=== PATIENT | female | born 1975 | race Caucasian/White ===

== ENCOUNTER 2021-05-22 09:27 | Outpatient (REF) | payer MEDICAID, SELFPAY ==
[2021-05-22 11:06] LABS: MANUAL DIFF FLAG NO
[2021-05-22 11:11] LABS: Basophils Percent Auto 0.5 % (0-2); Eosinophils Percent Auto 0.5 % (0-4); Hematocrit 41.1 % (37-47); Hemoglobin 13.1 g/dl (12.0-16.0); Imm Gran Abs Auto 0.03 X10*3/uL (0.00-0.03); Imm Gran Pct Auto 0.3 % (0.0-0.4); Lymphocytes Absolute Auto 1.1 X10*3/uL (1.2-4.9); Lymphocytes Percent Auto 13.3 % (20-40); Mean Corpuscular HGB Conc 31.9 g/dl (31.0-35.0); Mean Corpuscular Hemoglobin 30.6 pg (27.0-33.0); Mean Platelet Volume 10.4 fL (9.4-12.3); Monocytes Absolute Auto 0.7 X10*3/uL (0.1-1.2); Monocytes Percent Auto 7.7 % (2-11); Neutrophils Absolute Auto 6.7 X10*3/uL (2.0-8.3); Neutrophils Percent Auto 77.7 % (45-73); Platelet Count 278 X10*3/uL (160-400); Red Blood Count 4.28 X10*6/uL (4.20-5.50); Red Cell Distribution Width 14.3 % (11.0-16.0); White Blood Count 8.6 X10*3/uL (4.8-10.8)
[2021-05-22 11:46] LABS: Alanine Aminotransferase 20 U/L (0-31); Albumin Level 4.4 g/dL (3.5-5.0); Alkaline Phosphatase 59 U/L (39-117); Anion Gap 13 (12-20); Aspartate Amino Transferase 18 U/L (5-31); Bilirubin Total 0.7 mg/dL (0.0-1.0); Blood Urea Nitrogen 13 mg/dL (9-16); Calcium 9.1 mg/dL (8.4-10.2); Carbon Dioxide 26 mmol/L (22-29); Chloride 103 mmol/L (96-108); Cholesterol 185 mg/dL; Estimated Glomerular Filt Rate > 60; Glucose Fasting 82 mg/dL (60-99); HDL Cholesterol 59 mg/dL; Iron 89 mcg/dL (30-160); LDL Cholesterol Calculated 109 mg/dl; Potassium 4.3 mmol/L (3.3-5.1); Sodium 138 mmol/L (135-145); Total Protein 7.4 g/dL (6.5-8.0); Triglycerides 86 mg/dL
[2021-05-22 11:56] LABS: Ferritin 54 ng/mL (10-250); Free T4 (Free Thyroxine) 1.02 ng/dL (0.71-1.85); Thyroid Stimulating Hormone 0.88 uIU/mL (0.32-4.0); Vitamin D 25-OH Total 47.1 ng/mL (>30)
[2021-05-22 11:59] LABS: Percent Iron Saturation 24 % (15-50); Total Iron Binding Capacity 364 mcg/dL (228-428); Unsaturated Iron Binding 275 ug/dL
[2021-05-22 13:39] LABS: Folate > 20.0 ng/mL (> or = 4.0); Vitamin B12 575 pg/mL (200-900)
== END 2021-05-22 09:28 | disposition home or self-care (01) ==
LOC: HO.MANLDS 09:27
PROVIDERS: PCP Physician Assistant; Visit Provider Physician Assistant
DX: Z00.00 Encounter for general adult medical examination without abnormal findings (principal); R53.83 Other fatigue
CPT/HCPCS: 36415; 80053; 80061; 82306; 82607; 82728; 82746; 83540; 84439; 84443; 85025

== ENCOUNTER 2023-03-17 15:06 | Outpatient (REF) | payer MEDICAID, SELFPAY ==
[2023-03-17 18:19] LABS: Alanine Aminotransferase 25 U/L (0-31); Albumin Level 4.2 g/dL (3.5-5.0); Alkaline Phosphatase 60 U/L (39-117); Amylase 59 U/L (28-100); Anion Gap 12 (12-20); Aspartate Amino Transferase 20 U/L (5-31); Bilirubin Total 0.3 mg/dL (0.0-1.0); Blood Urea Nitrogen 9 mg/dL (9-16); Calcium 9.4 mg/dL (8.4-10.2); Carbon Dioxide 29 mmol/L (22-29); Chloride 104 mmol/L (96-108); Estimated Glomerular Filt Rate > 60; Gamma Glutamyl Transpeptidase 34 U/L (7-33); Glucose Random 85 mg/dL (60-115); Iron 87 mcg/dL (30-160); Lipase 21 U/L (8-78); Percent Iron Saturation 25 % (15-50); Potassium 3.9 mmol/L (3.3-5.1); Sodium 141 mmol/L (135-145); Total Iron Binding Capacity 344 mcg/dL (228-428); Total Protein 7.2 g/dL (6.5-8.0); Unsaturated Iron Binding 257 ug/dL
[2023-03-17 18:28] LABS: Cortisol Random 9.3 ug/dL
[2023-03-17 18:39] LABS: Ferritin 21 ng/mL (10-250); Free T4 (Free Thyroxine) 0.87 ng/dL (0.71-1.85); Insulin 26 uU/mL (2-29); Thyroid Stimulating Hormone 1.08 uIU/mL (0.32-4.0)
[2023-03-19 14:23] LABS: DHEA Sulfate 133 mcg/dL (15-205)
[2023-03-19 17:09] LABS: Follicle Stimulating Hormone 3.7 mIU/mL; Lutenizing Hormone 5.5 mIU/mL
[2023-03-19 17:13] LABS: Thyroid Peroxidase Antibodies 1 IU/mL (<9)
== END 2023-03-17 15:07 | disposition home or self-care (01) ==
LOC: HO.MANLDS 15:06
PROVIDERS: Visit Provider Physician Assistant
DX: K59.04 Chronic idiopathic constipation (principal); R63.5 Abnormal weight gain
CPT/HCPCS: 36415; 80053; 82150; 82533; 82627; 82728; 82977; 83001; 83002; 83525; 83540; 83690; 84439; 84443; 86376

== ENCOUNTER 2023-05-12 10:31 | Outpatient (REF) | payer OTHER, SELFPAY ==
[2023-05-12 13:49] LABS: MANUAL DIFF FLAG NO
[2023-05-12 14:05] LABS: Basophils Absolute Auto 0.1 X10*3/uL (0.0-0.2); Basophils Percent Auto 0.8 % (0-2); Eosinophils Percent Auto 0.6 % (0-4); Hematocrit 41.6 % (37.0-47.0); Hemoglobin 13.1 g/dl (12.0-16.0); Imm Gran Abs Auto 0.03 X10*3/uL (0.00-0.03); Imm Gran Pct Auto 0.4 % (0.0-0.4); Lymphocytes Absolute Auto 1.4 X10*3/uL (1.2-4.9); Lymphocytes Percent Auto 20.3 % (20-40); Mean Corpuscular HGB Conc 31.5 g/dl (31.0-35.0); Mean Corpuscular Hemoglobin 30.2 pg (27.0-33.0); Mean Corpuscular Volume 95.9 fL (80.0-98.0); Monocytes Absolute Auto 0.7 X10*3/uL (0.1-1.2); Neutrophils Absolute Auto 4.8 x10*3/uL (2.0-8.3); Neutrophils Percent Auto 67.9 % (45-73); Platelet Count 268 X10*3/uL (160-400); Red Blood Count 4.34 X10*6/uL (4.20-5.50); Red Cell Distribution Width 14.3 % (11.0-16.0); White Blood Count 7.1 X10*3/uL (4.8-10.8)
[2023-05-12 14:38] LABS: Erythrocyte Sedimentation Rate 8 MM/HR (0-20)
[2023-05-12 15:03] LABS: Ferritin 26 ng/mL (10-250); Iron 95 mcg/dL (30-160); Magnesium 2.5 mg/dL (1.6-2.6); Percent Iron Saturation 27 % (15-50); Total Iron Binding Capacity 352 mcg/dL (228-428); Unsaturated Iron Binding 257 ug/dL; Vitamin D 25-OH Total 56.2 ng/mL (>30)
[2023-05-12 15:20] LABS: Folate 12.5 ng/mL (> or = 4.0); Vitamin B12 601 pg/mL (200-900)
[2023-05-13 04:34] LABS: Follicle Stimulating Hormone 6.5 mIU/mL
[2023-05-17 22:19] LABS: Estradiol Ultra Sensitive 66 pg/mL
== END 2023-05-12 10:32 | disposition home or self-care (01) ==
LOC: HO.MANLDS 10:31
PROVIDERS: Visit Provider Internal Medicine
DX: R53.83 Other fatigue (principal); N91.2 Amenorrhea, unspecified
CPT/HCPCS: 36415; 82306; 82607; 82670; 82728; 82746; 83001; 83002; 83540; 83735; 85025; 85652